=== PATIENT | female | born 1935 | race Caucasian/White ===

== ENCOUNTER 2020-01-31 10:58 | Inpatient (IN) | payer MEDICARE ==
[~2020-01-31] VITALS: Ht 154.9 cm; Wt 73.1 kg
[2020-01-31 11:54] LABS: Hematocrit 43.3 % (36.0-46.0); Hemoglobin 14.2 g/dL (12.2-16.2); Mean Corpuscular Hgb Conc. 32.7 g/dL (32.0-36.0); Mean Corpuscular Volume 101.1 fL (80.0-100.0); Platelet Count (auto) 267 10^3/uL (140-450); Red Blood Cells 4.29 10^6/uL (4.0-5.20); Red Cell Distribution Width 15.5 % (11.8-14.3); White Blood Cell 15.3 10^3/uL (4.4-10.8)
[2020-01-31 11:55] LABS: INR 1.63 (0.9-1.15); Partial Thromboplastin Time 26.8 sec (23.64-32.05)
[2020-01-31 11:57] LABS: Basophils % (manual) 0 (0.0-2.0); Blast Cells 0; Eosinophils % (manual) 0 (0-7); Myelocytes % 0; Promyelocytes % 0; Reactive Lymphocytes 0
[2020-01-31 11:58] LABS: Potassium 3.5 mmol/L (3.5-5.1)
[2020-01-31 12:03] LABS: BUN/Creatinine Ratio 28.7; Bilirubin, Total 0.7 mg/dL (0.2-1.0)
[2020-01-31] MEDS ORDERED: ASPirin 81 mg TAB PO ONE (12:30)
[2020-01-31] MEDS ORDERED: ENOXAPARIN SOD 100 MG/1 ML SYRINGE SC ONE (12:30)
[2020-01-31 13:11] LABS: Band Neutrophils % (manual) 5; Lymphocytes % (manual) 19 (10.0-50.0); Metamyelocytes % 2; Monocytes % (manual) 6 (0-12)
[2020-01-31] MEDS ORDERED: ONDANSETRON HCL 4 MG/2 ML VIAL IV PRN (13:30)
[2020-01-31] MEDS ORDERED: ACETAMINOPHEN 500 MG TAB PO PRN (13:30)
[2020-01-31] MEDS ORDERED: LACTULOSE 20Gm/30ML SOLN PO PRN (13:30)
[2020-01-31] MEDS ORDERED: MORPHINE SULF INJ 2 MG/ML SYRINGE 1ML IV PRN (13:30)
[2020-01-31] MEDS ORDERED: DEXTROSE (50%) 50ML SYRG IV PRN (13:30)
[2020-01-31] MEDS ORDERED: NITROGLYCERIN 0.4 MG SL TAB SL PRN (13:30)
[2020-01-31] MEDS: SODIUM CHLORIDE 0.9% 1,000 ML IV SCH (14:01)
[2020-01-31 16:42] LABS: Alcohol, Urine < 3.0 mg/dL (0-5); Amphetamine Screen, Urine NEGATIVE (NEGATIVE); Barbiturate Scree,Urine NEGATIVE (NEGATIVE); Benzodiazephine Screen, Urine NEGATIVE (NEGATIVE); Cannabinoid Screen, Urine NEGATIVE (NEGATIVE); Cocaine Screen, Urine NEGATIVE (NEGATIVE)
[2020-01-31 16:44] LABS: Opiate Scree,Urine NEGATIVE (NEGATIVE); Phencyclidine Screen, Urine NEGATIVE (NEGATIVE)
[2020-01-31 16:47] LABS: Urine Bacteria FEW /hpf (None Seen); Urine Blood 3+ /uL (Negative); Urine Specific Gravity 1.017 (1.001-1.035); Urine WBC 6 /hpf (0 - 5)
[2020-01-31] MEDS: ACCU-CHEK COMFORT CURVE STRIP VI SCH ×2 (17:43→22:00)
[2020-01-31] MEDS: METOPROLOL TARTRATE 25 MG TAB PO SCH (22:00)
[2020-01-31] MEDS ORDERED: ENOXAPARIN SOD 60 MG/0.6 ML SYRINGE SC ONE (22:00)
[2020-01-31] MEDS: FAMOTIDINE 20 MG TAB PO SCH (22:00)
[2020-01-31] MEDS ORDERED: ATORVASTATIN 20 MG TAB PO SCH (22:00)
--- NOTE | 2020-01-31 23:45 | NUR ---
Pt being admitted to [facility] STATUS MAVIS CARRANZA admitted to ICU via rney on lunchroom monitor. Patient transferred to bed, connected to ICU monitoring and oxygen, and weighed by bed scale. Patient oriented to Bettie fowler RN, unit, room, bed, and unit policies regarding patient care and visiting hours. All questions and concerns addressed, patient verbalized understanding. NOTE: PATIENT IS AWAKE, ALERT AND ORIENTED X4. NO SOB, DISTRESS OR PAIN NOTED. ON ROOM AIR POX 96% CLEAR LUNGS ASSISTED WITH BEDPAN, BROWN FOUL SMELLING URINE NOTED. CLEANSED WITH WIPES. PLACED ON CLEAN SHEETS AND PAD. BLANCHABLE REDNESS TO SACRUM. TURNED TO RIGHT SIDE. WOUNDS NOTED TO BILATERAL KNEES AND RIGHT PLANTAR FOOT (WILL TAKE PICTURES) INSTRUCTED ON POC AND TO CALL FOR ASSIST NEEDED. BED IS IN THE LOWEST POSITION WITH SIDE RAILS UP X2, CALL LIGHT IS WITHIN REACH. BED ALARM ON. SAFETY PRECAUTIONS IN PLACE. WILL CLOSELY MONITOR.
[2020-02-01] VITALS (22 sets, daily range): BP systolic 91–115; BP diastolic 46–72
--- NOTE | 2020-02-01 00:10 | NUR ---
WOUND PICS TAKEN OF BILATERAL KNEES AND RIGHT PLANTAR FOOT. CLEANSED RIGHT FOOT WITH WOUND CLEANSER, APPLIED GAUZE AND WRAPPED WITH KERLIX. WOUND PAPERS FILLED OUT AND PLACED IN WOUND BOX IN [facility]. WOUND CONSULT PLACED, AND CAMERA RETURNED TO THE [facility].
[2020-02-01] MEDS ORDERED: SIMV-13 PO (00:35)
[2020-02-01] MEDS ORDERED: BENA20TA14 PO (00:35)
[2020-02-01] MEDS ORDERED: ASCO500T11 PO (00:35)
[2020-02-01] MEDS ORDERED: POTA10TA51 PO (00:35)
[2020-02-01] MEDS ORDERED: WARF3TAB22 PO (00:35)
[2020-02-01] MEDS ORDERED: WARF4TAB33 PO (00:35)
[2020-02-01] MEDS ORDERED: ENAL2.5T PO (00:35)
[2020-02-01] MEDS ORDERED: CHOL100067 PO (00:35)
[2020-02-01] MEDS ORDERED: CYAN1TAB14 PO (00:35)
[2020-02-01] MEDS: SODIUM CHLORIDE 0.9% 1,000 ML IV SCH (05:25)
[2020-02-01] MEDS: ACCU-CHEK COMFORT CURVE STRIP VI SCH ×3 (05:44→17:00)
--- NOTE | 2020-02-01 05:45 | NUR ---
BEDPAN PATIENT HAD A VOID IN THE BEDPAN, BROWN, STRONG SMELL. CLEANSED WITH SOAP AND WATER. NEW PAD PLACED UNDER PATIENT. TOLERATED IT WELL.
[2020-02-01 06:15] LABS: Cholesterol 144 mg/dL (< 200); HDL Cholesterol 86 mg/dL (40-59); LDL Cholesterol 49 mg/dL (< 100); Triglycerides 74 mg/dL (< 150)
--- NOTE | 2020-02-01 07:25 | NUR ---
END OF SHIFT REPORT GIVEN AND CARE ENDORSED KIANA WREN.
--- NOTE | 2020-02-01 07:45 | NUR ---
OPENING SHIFT NOTE: Received report from NOC RNSaumya. Assumed care of patient. Received patient in bed, connected to bedside monitor with alarms in place, no s/s of distress noted. Patient is A&Ox4, forgetful but easily reoriented. Patient with IVF of NS running at 75ml/hr to Rt FA #20, site is patent and asymptomatic. Bed in lowest position, rails x2 up and call light within reach. Updated on plan of care. Will continue to monitor q1hr/PRN.
--- NOTE | 2020-02-01 08:36 | NUR ---
MRSA swab resent.
--- NOTE | 2020-02-01 09:42 | NUR ---
dye penetrant testing technician at bedside.
--- NOTE | 2020-02-01 09:48 | NUR ---
Dr De Oliveira at bedside to see patient.
[2020-02-01] MEDS: NITROGLYCERIN 0.2MG/HR TOPICAL PATCH TD SCH (10:00)
[2020-02-01] MEDS: METOPROLOL TARTRATE 25 MG TAB PO SCH ×2 (10:00→19:58)
[2020-02-01] MEDS: ASPirin 81 mg TAB PO SCH (10:36)
--- NOTE | 2020-02-01 12:20 | NUR ---
Dr Cassie Boogie to see patient. Orders received. Patient now [facility] status.
[2020-02-01] MEDS ORDERED: VANCOMYCIN PER PHARMACY 0 MG IV SCH (12:30)
--- NOTE | 2020-02-01 12:34 | NUR ---
Dr Vaca to see patient. Orders received.
[2020-02-01] MEDS ORDERED: VANCOMYCIN 1GM/250ML 250 ML IV ONE ×2 (13:00→15:00)
[2020-02-01] MEDS ORDERED: LIDOCAINE VISCOUS 2% 15ML UD MT ONE (13:00)
--- NOTE | 2020-02-01 13:10 | NUR ---
WOUND CARE NOTE: IN TO SEE PATIENT AT THIS TIME PER WOUND CARE CONSULT REQUEST. PATIENT RECENTLY ADMITTED TO [facility] WITH DIAGNOSIS OF NON STEMI. PATIENT HAS CURRENT ARUNA SCORE OF 14. PATIENT IS ABLE TO ASSIST WITH HER TURNING/REPOSITIONING. PATIENT NOTED TO HAVE SKIN INTEGRITY CONCERNS UPON ADMIT. WOUND PHOTOS TAKEN AT THAT TIME BY BEDSIDE NURSE. PATIENT STATES THAT SHE FELL BETWEEN HER BED AND COMMODE. SHE FELL TO HER KNEES AND WAS UNABLE TO GET UP. PATIENT STAYED ON HER KNEES FOR MULTIPLE HOURS, AWAITING ASSISTANCE. 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 SHE SEEKS REGULAR PODIATRIC CARE/DEBRIDEMENTS WITH HER GRINDER SET UP OPERATOR GEAR TOOL, AND HAS HOME HEALTHCARE NURSE CHANGE HER DRESSINGS. PATIENT NOTED TO HAVE 2 X 0.5 X 0.4 CM CHRONIC NON HEALING WOUND TO THE RIGHT PLANTAR FOREFOOT. WOUND BED IS PALE RED, PERIWOUND IS PINK. NO NECROTIC TISSUE NOTED. WOUND HAS SCANT SEROUS DRAINAGE NOTED. CLEANSED WITH WOUND CLEANSER, PATTED DRY WITH STERILE GAUZE. APPLIED THERAHONEY, TELFA. WRAPPED FOOT WITH KERLIX, SECURED WITH TAPE. BILATERAL KNEES ARE ERYTHEMIC, WITH SCABBED ABRASIONS NOTED. THERE IS EDEMA NOTED TO BOTH KNEES. SKIN IS BLANCHING TO BOTH KNEES. LEFT OPEN TO AIR. RECOMMEND: FREQUENT TURN SCHEDULE Q 2 HOURS PRN CONDITION PERMITS, WITH PRESSURE REDISTRIBUTION USING PILLOWS/WEDGES, BID/PRN APPLICATION WITH MOISTURE BARRIER CREAM, OPTIFOAM GENTLE SACRAL DRESSING, EOD/PRN DRESSING CHANGE TO RIGHT FOOT WOUND, SKIN/WOUND CARE PLAN (IMPLEMENTED), DIETARY CONSULT, CONTINUED MONITORING BY WOUND CARE TEAM. Addendum: 02/01/20 at 1625 by Myranda Wagoner RN Amended: Links added.
[2020-02-01] MEDS ORDERED: LIDOCAINE HCL 2% TOP JELLY 5ML TOP ONE (13:15)
[2020-02-01] MEDS ORDERED: PIPERACILLIN-TAZOB 3.375GM 100 ML IV ONE (13:30)
[2020-02-01] MEDS: SOD CHL 0.9%/ KCL 20MEQ 1,000 ML IV SCH ×2 (13:49→19:58)
--- NOTE | 2020-02-01 14:09 | NUR ---
Serrano catheter insertion Patient assessed and determined to be in need of serrano catheter. Order obtained from Dr Vaca. Patient educated on catheter and reason for insertion. All questions answered. Serrano catheter 16fr guage Icelandic inserted with clean sterile technique. Patient tolerated well. Urnine sample sent to lab.
[2020-02-01 14:47] LABS: Protein, Urine 273.8 mg/dL (0.0-11.9)
--- NOTE | 2020-02-01 16:54 | NUR ---
airframe and powerplant technician at bedside.
--- NOTE | 2020-02-01 18:53 | NUR ---
CLOSING SHIFT NOTE: Patient sitting up in bed after dinner. Patient connected to bedside monitor with alarms in place. Patient now with IVF of NS + 20 KCL infusing at 120ml/hr in right FA #20. Renee placed early and draining to gravity dark yellow UOP. Bed in lowest position, rails up x2 and call light within reach. Report to be given to Saumya SANTOS RN.
[2020-02-01] MEDS: PIPERACILLIN-TAZOB 3.375GM 100 ML IV SCH (19:57)
[2020-02-01] MEDS: FAMOTIDINE 20 MG TAB PO SCH (19:58)
--- NOTE | 2020-02-01 20:00 | NUR ---
SHIFT OPENING NOTE RECEIVED PATIENT AWAKE, ALERT AND ORIENTED X4. NO SOB, DISTRESS OR PAIN NOTED. ON ROOM AIR. WHELAN NOTED WITH YELLOWISH/BROWN URINE WITH SEDIMENT. FLUIDS INFUSING AT 120ML/H. PHYSICAL ASSESSMENT COMPLETED, SEE INTERVENTIONS. INSTRUCTED ON POC AND TO CALL FOR ASSIST NEEDED. BED IS IN THE LOWEST POSITION WITH SIDE RAILS UP X2, CALL LIGHT IS WITHIN REACH.
[2020-02-02] VITALS: BP 95/52
[2020-02-02] MEDS: ACCU-CHEK COMFORT CURVE STRIP VI SCH ×2 (00:10→04:31)
[2020-02-02] MEDS: SOD CHL 0.9%/ KCL 20MEQ 1,000 ML IV SCH ×3 (02:27→21:33)
[2020-02-02] MEDS: PIPERACILLIN-TAZOB 3.375GM 100 ML IV SCH ×4 (02:27→21:32)
--- NOTE | 2020-02-02 03:40 | NUR ---
MORNING HYGIENE CARE FULL BED BATH PERFORMED USING WARM SOAPY WASH CLOTHES. GOWN CHANGED. HAIR CARE DONE, ORAL CARE DONE. PARTIAL LINEN CHANGED. PATIENT REPOSITIONED FOR COMFORT. TOLERATED IT WELL.
[2020-02-02 04:00] VITALS: BP 98/53
[2020-02-02 04:07] LABS: Hematocrit 36.4 % (36.0-46.0); Hemoglobin 11.8 g/dL (12.2-16.2); Mean Corpuscular Hemoglobin 32.7 pg (28.0-32.0); Mean Corpuscular Hgb Conc. 32.5 g/dL (32.0-36.0); Mean Corpuscular Volume 100.7 fL (80.0-100.0); Platelet Count (auto) 152 10^3/uL (140-450); Red Blood Cells 3.62 10^6/uL (4.0-5.20); White Blood Cell 11.4 10^3/uL (4.4-10.8)
[2020-02-02 04:14] LABS: Albumin 2.2 g/dL (3.4-5.0); Calcium 7.1 mg/dL (8.5-10.1); Potassium 3.5 mmol/L (3.5-5.1)
[2020-02-02 04:18] LABS: Bilirubin, Total 0.9 mg/dL (0.2-1.0); Phosphorus 1.8 mg/dL (2.5-4.90); Total Protein 5.6 g/dL (6.4-8.2)
[2020-02-02 04:49] LABS: Basophils % (manual) 0 (0.0-2.0); Blast Cells 0; Eosinophils % (manual) 0 (0-7); Metamyelocytes % 0; Myelocytes % 0; Promyelocytes % 0; Reactive Lymphocytes 0
[2020-02-02 04:58] LABS: BUN/Creatinine Ratio 30.4
[2020-02-02 05:02] LABS: Band Neutrophils % (manual) 12; Lymphocytes % (manual) 21 (10.0-50.0); Monocytes % (manual) 2 (0-12)
--- NOTE | 2020-02-02 07:15 | NUR ---
END OF SHIFT REPORT GIVEN AND CARE ENDORSED TO KIANA WREN.
--- NOTE | 2020-02-02 07:45 | NUR ---
OPENING SHIFT NOTE: Received report from NOC RNSaumya. Assumed care of patient. Received patient in bed, connected to bedside monitor with alarms in place, no s/s of distress noted. Patient is A&Ox4, forgetful but easily reoriented. Patient with IVF of NS+20 KCl running at 120ml/hr to Rt FA #20, site is patent and asymptomatic. Renee draining to gravity dark yellow UOP with sediment noted. Bed in lowest position, rails x2 up and call light within reach. Updated on plan of care. Will continue to monitor q1hr/PRN.
[2020-02-02 08:00] VITALS: BP 98/72
[2020-02-02] MEDS: traMADol HCL 50 MG TAB PO PRN ×2 (08:22→21:32)
--- NOTE | 2020-02-02 08:30 | NUR ---
MD: Dr Cassie Boogie to see patient. Orders received.
[2020-02-02] MEDS ORDERED: POTASSIUM PHOSPHATE 44 MEQ in D5W 5% 250 ML IV ONE (09:30)
[2020-02-02] MEDS: NITROGLYCERIN 0.2MG/HR TOPICAL PATCH TD SCH (09:43)
[2020-02-02] MEDS: METOPROLOL TARTRATE 25 MG TAB PO SCH ×2 (09:44→21:33)
[2020-02-02] MEDS: ASPirin 81 mg TAB PO SCH (10:31)
[2020-02-02 12:00] VITALS: BP 102/59
--- NOTE | 2020-02-02 12:30 | NUR ---
MD: Dr Vaca to see patient. No new orders received.
[2020-02-02] MEDS: VANCOMYCIN 750mg/250ml 250 ML IV SCH (12:55)
--- NOTE | 2020-02-02 14:38 | NUR ---
Nutrition Consult/assessment Notes Please see attached link fo complete assessment Est. Needs BW 67 [id number] kcals (23-25 kcal/kgBW). 67-87 gms/day (1.0-1.3 gm/kgBW low alb). Will continue to monitor pertinent labs and reassess nutrient need prn. Addendum: 02/02/20 at [address] Amended: Links added.
--- NOTE | 2020-02-02 16:22 | NUR ---
Patient resting in bed, sleeping on and off. No s/s of distress noted. Will continue to monitor.
--- NOTE | 2020-02-02 18:52 | NUR ---
CLOSING SHIFT NOTE: Patient sitting up in bed after dinner. Patient connected to bedside monitor with alarms in place. Patient is a telemetry downgrade, pending bed assignment. Patient now with IVF of NS + 20 KCL infusing at 100ml/hr in right FA #20. Renee draining to gravity yellow UOP. Bed in lowest position, rails up x2 and call light within reach. Report to be given to TOM WREN.
[2020-02-02 20:00] VITALS: BP 109/69
--- NOTE | 2020-02-02 20:00 | NUR ---
Pt stable this shift. No S/S of distress. Repositioned.
[2020-02-02] MEDS: FAMOTIDINE 20 MG TAB PO SCH (21:32)
[2020-02-03] VITALS: BP 105/61
--- NOTE | 2020-02-03 | NUR ---
Ultram given per request. Generalized pain. Will continue to monitor.
[2020-02-03] MEDS: TEMAZEPAM 15 MG CAP PO PRN ×2 (00:46→23:16)
--- NOTE | 2020-02-03 01:00 | NUR ---
Restoril given per request. Stable, will continue to monitor.
--- NOTE | 2020-02-03 03:00 | NUR ---
Bed assignment given. 247A. Stable at this time.
[2020-02-03] MEDS: PIPERACILLIN-TAZOB 3.375GM 100 ML IV SCH ×4 (03:36→20:00)
[2020-02-03 03:49] LABS: Basophils # (auto) 0 10 ^3/uL (0-0.2); Eosinophils # (auto) 0 10 ^3/uL (0-0.8); Hemoglobin 10.5 g/dL (12.2-16.2)
[2020-02-03 03:51] LABS: Basophils % (auto) 0.3 % (0.0-2.0); Eosinophils % (auto) 0.1 % (0.0-7.0); Hematocrit 31.3 % (36.0-46.0); Lymphocytes # (auto) 1.8 10 ^3/uL (0.4-5.4); Lymphocytes % (auto) 17.7 % (10.0-50.0); Mean Corpuscular Hemoglobin 34.2 pg (28.0-32.0); Mean Corpuscular Hgb Conc. 33.6 g/dL (32.0-36.0); Mean Corpuscular Volume 101.8 fL (80.0-100.0); Monocytes # (auto) 0.9 10 ^3/uL (0-1.3); Monocytes % (auto) 9.1 % (0.0-12.0); Neutrophils # (auto) 7.5 10 ^3/uL (1.6-8.6); Neutrophils % (auto) 72.8 % (37.0-80.0); Platelet Count (auto) 133 10^3/uL (140-450); Red Blood Cells 3.08 10^6/uL (4.0-5.20); Red Cell Distribution Width 16.1 % (11.8-14.3); White Blood Cell 10.3 10^3/uL (4.4-10.8)
[2020-02-03 04:00] VITALS: BP 100/55
[2020-02-03 04:07] LABS: Potassium 3.6 mmol/L (3.5-5.1)
[2020-02-03 04:11] LABS: BUN/Creatinine Ratio 28.1; Bilirubin, Total 1.1 mg/dL (0.2-1.0); Total Protein 5.6 g/dL (6.4-8.2)
--- NOTE | 2020-02-03 04:15 | NUR ---
Received Report Received report from [facility] nurse Rina, waiting for patient to be transfer to telemetry floor.
--- NOTE | 2020-02-03 04:56 | NUR ---
Report given to Jacki WREN. Pt stable and now alert and oriented. Pt transferred to room 247A via bed by Ester MTZ. All belongings with pt. Care endorsed.
--- NOTE | 2020-02-03 04:58 | NUR ---
Admit to [facility] Emre CARRANZAitted to [facility] via gurney on cardiac technician, and portable 02. Patient transfered to bed, connected to unit monitoring and oxygen, and weighed by bedscale. Patient oriented to BRYCE LOPEZ, RN primary RN, unit, room, bed, and unit policies regarding patient care and visiting hours. All questions and concerns addressed, patient verbalized understanding. Tele monitor 2 SR.
[2020-02-03] MEDS: SOD CHL 0.9%/ KCL 20MEQ 1,000 ML IV SCH ×2 (05:30→15:52)
[2020-02-03] MEDS: traMADol HCL 50 MG TAB PO PRN (06:29)
--- NOTE | 2020-02-03 06:29 | NUR ---
Pain Patient c/o pain in her feet. Pain medication given.
--- NOTE | 2020-02-03 07:30 | NUR ---
Opening Shift Note Assumed care of patient, awake, alert, and oriented. No S/S of distress/SOB or pain. Bed in lowest/locked position, bed rails up x2, call light within reach. Instructed on POC and to call for assist PRN. Will continue to monitor for changes Q1hr and PRN.
[2020-02-03 08:00] VITALS: BP_SYST 121; BP_SYST 94; BP_DIAS 58; BP_DIAS 68
[2020-02-03] MEDS: ASPirin 81 mg TAB PO SCH (08:16)
[2020-02-03] MEDS: NITROGLYCERIN 0.2MG/HR TOPICAL PATCH TD SCH (08:17)
[2020-02-03] MEDS: METOPROLOL TARTRATE 25 MG TAB PO SCH ×2 (08:17→21:52)
--- NOTE | 2020-02-03 10:10 | NUR ---
MD ROUNDS DR Cassie SINGER AT BEDSIDE DISCUSSING POC WITH PATIENT. NEW ORDERS RECEIVED/WILL CARRY OUT. WILL CONTINUE TO MONITOR
[2020-02-03] MEDS ORDERED: NITROFURANTOIN (MONO) 100 mg CAP PO ONE (10:15)
[2020-02-03 12:00] VITALS: BP 120/66
[2020-02-03] MEDS: Ensure HIGH Protein Vanilla 8oz Bottle PO SCH ×2 (14:00→18:30)
[2020-02-03] MEDS: VANCOMYCIN 750mg/250ml 250 ML IV SCH (14:51)
--- NOTE | 2020-02-03 15:36 | NUR ---
assessment re: rosa consults Patient is a 85 year old female who was sleeping. Per patients caregiver Melba prior to admission patient lived home alone and functioned with assistance. Per Melba patient can bathe, dress, and feed and cook for herself. Melba drives to appointments, does grocery shopping for patient. Patients PCP is Dr Mejia. Per Melba patient did fall at home due to weakness. Patient is on service with [facility]. Patient will need a resumption order on discharge for wound care and PT. Per Melba patient will go home with her on discharge until patient is able to return home. Melba verbalized understanding and agreed to discharge plan home with her. Addendum: 02/03/20 at 1612 by Gabriella ALVAREZ Amended: Links added.
[2020-02-03 17:00] VITALS: BP 101/59
--- NOTE | 2020-02-03 19:15 | NUR ---
Opening Shift Note Assumed care of patient, awake and alert. No S/S of distress/SOB or pain. Patient eating dinner. Renee hanging below bed, draining to gravity. Instructed on POC and to call for assist PRN, will continue to monitor for changes Q1hr and PRN.
[2020-02-03] MEDS: FAMOTIDINE 20 MG TAB PO SCH (21:52)
--- NOTE | 2020-02-03 21:52 | NUR ---
Pain Patient c/o pain 2/10 to LBE. Pain medication administered.
[2020-02-03 22:00] VITALS: BP 106/62
--- NOTE | 2020-02-03 22:52 | NUR ---
RE Pain Reassessed pain 0/10, patient stated "I feel better now"
[2020-02-04] MEDS: SOD CHL 0.9%/ KCL 20MEQ 1,000 ML IV SCH ×2 (02:29→11:13)
[2020-02-04] MEDS: PIPERACILLIN-TAZOB 3.375GM 100 ML IV SCH ×2 (02:29→08:00)
[2020-02-04 05:00] VITALS: BP 101/58
[2020-02-04 06:46] LABS: Basophils # (auto) 0 10 ^3/uL (0-0.2); Mean Corpuscular Volume 101.3 fL (80.0-100.0); White Blood Cell 6.8 10^3/uL (4.4-10.8)
[2020-02-04 06:48] LABS: Basophils % (auto) 0.4 % (0.0-2.0); Eosinophils # (auto) 0 10 ^3/uL (0-0.8); Eosinophils % (auto) 0.7 % (0.0-7.0); Hematocrit 29.1 % (36.0-46.0); Hemoglobin 9.8 g/dL (12.2-16.2); Lymphocytes # (auto) 1.7 10 ^3/uL (0.4-5.4); Lymphocytes % (auto) 25.3 % (10.0-50.0); Mean Corpuscular Hemoglobin 34.3 pg (28.0-32.0); Mean Corpuscular Hgb Conc. 33.8 g/dL (32.0-36.0); Monocytes # (auto) 0.8 10 ^3/uL (0-1.3); Monocytes % (auto) 11.1 % (0.0-12.0); Neutrophils # (auto) 4.2 10 ^3/uL (1.6-8.6); Neutrophils % (auto) 62.5 % (37.0-80.0); Nucleated Red Blood Cells % 0.1 %; Platelet Count (auto) 141 10^3/uL (140-450); Red Blood Cells 2.88 10^6/uL (4.0-5.20); Red Cell Distribution Width 15.5 % (11.8-14.3)
[2020-02-04 06:57] LABS: Potassium 3.5 mmol/L (3.5-5.1)
[2020-02-04 07:07] LABS: Albumin 1.7 g/dL (3.4-5.0); BUN/Creatinine Ratio 25.3; Bilirubin, Total 0.9 mg/dL (0.2-1.0); Calcium 7.6 mg/dL (8.5-10.1); Total Protein 5.4 g/dL (6.4-8.2)
--- NOTE | 2020-02-04 07:08 | NUR ---
Closing Note Endorsed care to dayshift nurse.
--- NOTE | 2020-02-04 07:30 | NUR ---
Opening Shift Note Assumed care of patient, awake, alert, and oriented. No S/S of distress/SOB or pain. Bed in lowest/locked position, bed rails up x2, call light within reach. Instructed on POC and to call for assist PRN. Will continue to monitor for changes Q1hr and PRN. Addendum: 02/04/20 at 0931 by CRHIS JACOBSON RN RN PATIENT SUPINE HOB >30 DEGREES
[2020-02-04 08:00] VITALS: BP 104/57
--- NOTE | 2020-02-04 09:00 | NUR ---
POSITION PATIENT TURNED TO RIGHT SIDE. PATIENT TOLERATED WELL. WILL CONTINUE TO MONITOR
[2020-02-04] MEDS: METOPROLOL TARTRATE 25 MG TAB PO SCH (09:19)
[2020-02-04] MEDS: NITROGLYCERIN 0.2MG/HR TOPICAL PATCH TD SCH (09:19)
[2020-02-04] MEDS: Ensure HIGH Protein Vanilla 8oz Bottle PO SCH ×2 (09:19→12:15)
[2020-02-04] MEDS: ASPirin 81 mg TAB PO SCH (09:20)
--- NOTE | 2020-02-04 10:45 | NUR ---
MD ROUNDS DR Cassie SINGER AT BEDSIDE DISCUSSING POC WITH PATIENT. NEW ORDERS RECEIVED/WILL CARRY OUT. WILL CONTINUE TO MONITOR
[2020-02-04 12:00] VITALS: BP 129/75
--- NOTE | 2020-02-04 12:15 | NUR ---
TASHA UPDATED MICHELET, PATIENT CAREGIVER, [phone], ON PATIENT DISCHARGE. PER MICHELET: PATIENT NOTIFIED HER. MICHELET WILL BE PICKING PATIENT UP UPON DISCHARGE. WILL CONTINUE TO MONITOR
--- NOTE | 2020-02-04 13:38 | NUR ---
D/C Planning Per SS consult to resume home health with [facility]. Faxed clinical to agency. Per Alia with [facility]:) they will resume service for patient within 24hrs upon d/c.
--- NOTE | 2020-02-04 14:36 | NUR ---
MRSA MRSA SWAB SENT. DISCHARGE WOUND PHOTOS TAKEN. PATIENT BATHED, DRESSED AND AWAITING NOK TO PICK HER UP
--- NOTE | 2020-02-04 14:36 | NUR ---
WHELAN REMOVED PATIENT WHELAN CATHETER. PATIENT TOLERATED WELL. INFORMED PATIENT TO INFORM RN OF WHEN SHE URINATES. PER PATIENT SHE USES PADS AND IS INCONTINENT. WILL CONTINUE TO MONITOR
--- NOTE | 2020-02-04 17:48 | NUR ---
Discharge instructions given as ordered. Encourage to follow up with PMD as instructed. All questions and concerns addressed. Patient verbalized understanding. IV removed with catheter intact, pressure dressing applied, serrano catheter removed. Telemetry unit returned to ICU. Patient taken to vehicle via wheelchair with all personal belongings, accompanied by staff. No distress noted at time of departure.
== END 2020-02-04 17:45 | disposition home health service (06) | DRG 871 ==
LOC: ER 10:58 → EDBD 10:58 → OVERFLOW 10:59 → TELE-EAST 23:15 → DOU IN ICU 23:42 → TELE-EAST 02-03 05:27
PROVIDERS: ADMIT Internal Medicine; ATTEND Family Medicine
DX: A41.9 Sepsis, unspecified organism (principal); G93.41 Metabolic encephalopathy; I21.4 Non-ST elevation (NSTEMI) myocardial infarction; N17.0 Acute kidney failure with tubular necrosis; I50.41 Acute combined systolic (congestive) and diastolic (congestive) heart failure; M62.82 Rhabdomyolysis; D68.69 Other thrombophilia; I11.0 Hypertensive heart disease with heart failure; S80.02XA Contusion of left knee, initial encounter; W18.30XA Fall on same level, unspecified, initial encounter; I25.10 Atherosclerotic heart disease of native coronary artery without angina pectoris; I95.9 Hypotension, unspecified; E78.00 Pure hypercholesterolemia, unspecified; R65.20 Severe sepsis without septic shock; S80.211A Abrasion, right knee, initial encounter; S80.212A Abrasion, left knee, initial encounter; F41.9 Anxiety disorder, unspecified; Z98.51 Tubal ligation status; Z88.1 Allergy status to other antibiotic agents; Z88.8 Allergy status to other drugs, medicaments and biological substances; Z79.899 Other long term (current) drug therapy; Z86.711 Personal history of pulmonary embolism; Y93.89 Activity, other specified; Y92.89 Other specified places as the place of occurrence of the external cause; Y99.8 Other external cause status
CPT/HCPCS: 36415; 71045; 73562; 76705; 80053; 80061; 80202; 80307; 81001; 82550; 82570; 82962; 83036; 83735; 83880; 84100; 84156; 84300; 84484; 85007; 85025; 85027; 85610; 85652; 85730; 86704; 86706; 86708; 86803; 87040; 87081; 87086; 87340; 93005; 93306; 93971; 97110; 97163; 97530; G0378; J2543; J7060

== ENCOUNTER 2020-02-15 10:36 | Inpatient (IN) | payer MEDICARE ==
[~2020-02-15] VITALS: Ht 154.9 cm; Wt 66.5 kg
[~2020-02-15 10:36] MED LIST: ASCO500T11 PO; BENA20TA14 PO; CHOL100067 PO; CYAN1TAB14 PO; ENAL2.5T PO; POTA10TA51 PO; SIMV-13 PO; WARF3TAB22 PO; WARF4TAB33 PO
[2020-02-15] MEDS ORDERED: SODIUM CHLORIDE 0.9% 1,000 ML IV ONE (11:00)
[2020-02-15 11:36] LABS: Eosinophils # (auto) 0 10 ^3/uL (0-0.8); Hemoglobin 11.3 g/dL (12.2-16.2); Lymphocytes # (auto) 3.3 10 ^3/uL (0.4-5.4); Mean Corpuscular Hgb Conc. 33.1 g/dL (32.0-36.0); Monocytes # (auto) 0.6 10 ^3/uL (0-1.3); Red Blood Cells 3.37 10^6/uL (4.0-5.20)
[2020-02-15 11:37] LABS: Basophils # (auto) 0 10 ^3/uL (0-0.2); Basophils % (auto) 0.3 % (0.0-2.0); Eosinophils % (auto) 0.3 % (0.0-7.0); Hematocrit 34.1 % (36.0-46.0); Lymphocytes % (auto) 27.3 % (10.0-50.0); Mean Corpuscular Hemoglobin 33.5 pg (28.0-32.0); Mean Corpuscular Volume 101.2 fL (80.0-100.0); Monocytes % (auto) 5.4 % (0.0-12.0); Neutrophils % (auto) 66.7 % (37.0-80.0); Platelet Count (auto) 374 10^3/uL (140-450); White Blood Cell 11.9 10^3/uL (4.4-10.8)
[2020-02-15 11:43] LABS: Anion Gap 9 (5-15); Blood Urea Nitrogen 19 mg/dL (7-18); Calcium 8.3 mg/dL (8.5-10.1); Carbon Dioxide 28 mmol/L (21-32); Chloride 105 mmol/L (98-107); Glucose 104 mg/dL (74-106); Magnesium 1.8 mg/dL (1.6-2.6); Potassium 3.6 mmol/L (3.5-5.1); Sodium 142 mmol/L (136-145)
[2020-02-15 11:45] LABS: INR 1.11 (0.9-1.15); Partial Thromboplastin Time 23.6 sec (23.64-32.05)
[2020-02-15 11:48] LABS: Alanine Aminotransferase 63 U/L (13-56); Alkaline Phosphatase 102 U/L (45-117); Aspartate Aminotransferase 27 U/L (15-37); BUN/Creatinine Ratio 24.4; Bilirubin, Total 0.7 mg/dL (0.2-1.0); GFR African American 90 mL/min; GFR Non-African American 74 mL/min; Total Protein 6.5 g/dL (6.4-8.2)
[2020-02-15 11:58] LABS: Urine Bacteria MANY /hpf (None Seen); Urine Blood 1+ /uL (Negative); Urine Specific Gravity 1.014 (1.001-1.035); Urine WBC 222 /hpf (0 - 5)
[2020-02-15] MEDS ORDERED: cefTRIAXone 1GM/50ML D5W 50 ML IV ONE (12:45)
[2020-02-15] MEDS ORDERED: ACETAMINOPHEN 325 MG TAB PO ONE (15:15)
[2020-02-15] MEDS ORDERED: CYANOCOBALAMIN (B-12) 1000 MCG/1 ML VIAL SUBCUT ONE (15:30)
[2020-02-15] MEDS ORDERED: levoFLOXacin 500MG 100 ML IV ONE (16:45)
[2020-02-15] MEDS ORDERED: ACETAMINOPHEN 500 MG TAB PO PRN (16:45)
[2020-02-15] MEDS ORDERED: ONDANSETRON HCL 4 MG/2 ML VIAL IV PRN (16:45)
--- NOTE | 2020-02-15 17:31 | NUR ---
MS admit from ER MAVIS CARRANZA admitted to [facility]. No report received. Patient oriented to REMY MATOS RN primary RN, unit, room, bed, and unit policies regarding patient care and visiting hours. Patient weighed by bedscale and encouraged to call if they need something. All questions and concerns addressed, patient verbalized understanding.
[2020-02-15] MEDS: SODIUM CHLORIDE 0.9% 1,000 ML IV SCH (17:37)
[2020-02-15 18:29] VITALS: BP 135/58
--- NOTE | 2020-02-15 19:41 | NUR ---
Closing Shift Note Patient resting in bed. No distress noted. Report given. Will endorse care to the power and recovery shift engineer RN.
[2020-02-15 22:00] VITALS: BP 119/67
[2020-02-15] MEDS: FAMOTIDINE 20 MG TAB PO SCH (22:27)
[2020-02-15] MEDS: traMADol HCL 50 MG TAB PO PRN (23:46)
[2020-02-16] MEDS: SODIUM CHLORIDE 0.9% 1,000 ML IV SCH ×3 (00:46→22:06)
[2020-02-16 05:00] VITALS: BP 118/60
[2020-02-16 05:37] LABS: Basophils # (auto) 0 10 ^3/uL (0-0.2); Eosinophils # (auto) 0 10 ^3/uL (0-0.8); Eosinophils % (auto) 0.4 % (0.0-7.0); Hemoglobin 9.7 g/dL (12.2-16.2); Mean Corpuscular Hemoglobin 34.4 pg (28.0-32.0)
[2020-02-16 05:41] LABS: Basophils % (auto) 0.3 % (0.0-2.0); Hematocrit 29.1 % (36.0-46.0); Lymphocytes # (auto) 2.3 10 ^3/uL (0.4-5.4); Lymphocytes % (auto) 22.6 % (10.0-50.0); Mean Corpuscular Hgb Conc. 33.5 g/dL (32.0-36.0); Mean Corpuscular Volume 102.5 fL (80.0-100.0); Monocytes # (auto) 0.8 10 ^3/uL (0-1.3); Monocytes % (auto) 7.5 % (0.0-12.0); Neutrophils % (auto) 69.2 % (37.0-80.0); Platelet Count (auto) 278 10^3/uL (140-450); Red Blood Cells 2.84 10^6/uL (4.0-5.20)
--- NOTE | 2020-02-16 07:30 | NUR ---
Opening Shift Note Assuming care of patient at this time. Patient is awake and alert. Patient denies pain. Patient shows no signs or symptoms of distress or shortness of breath. Bed is locked and lowered with side rails up x2. Instructed patient on the plan of care for today and to call for assistance as needed. Call light within reach. Will continue to round hourly and as needed.
--- NOTE | 2020-02-16 08:30 | NUR ---
WOUND CARE NOTE: ORDERED P500 AIR MATTRESS AT THIS TIME. PATIENT TO BE PLACED, PENDING DELIVERY BY RAY TOMLINSON
[2020-02-16 09:00] VITALS: BP 122/55
[2020-02-16] MEDS ORDERED: levoFLOXacin 500MG 100 ML IV SCH (10:00)
[2020-02-16 13:00] VITALS: BP 120/61
--- NOTE | 2020-02-16 13:00 | NUR ---
Coumadin Dr. Boogie notified this RN to verify if patient takes Coumadin at home. Patient states she no longer takes Coumadin. Patient states she tried to verify with primary MD, but MD never returned her messages. Will resume all home medications except the Coumadin at this time.
[2020-02-16] MEDS ORDERED: IOHEXOL 300 MG/ML 100ML BOTTLE IJ ONE (13:13)
[2020-02-16 17:00] VITALS: BP 113/64
--- NOTE | 2020-02-16 17:00 | NUR ---
Specialty Bed Patient changed to specialty bed at this time. No distress noted.
--- NOTE | 2020-02-16 19:31 | NUR ---
Closing Shift Note Patient resting in bed. No distress noted. Report given. Will endorse care to the data integration analyst RN.
[2020-02-16] MEDS: FAMOTIDINE 20 MG TAB PO SCH (21:55)
[2020-02-16] MEDS: ATORVASTATIN 20 MG TAB PO SCH (21:55)
[2020-02-16] MEDS: traMADol HCL 50 MG TAB PO PRN (21:56)
[2020-02-16 22:00] VITALS: BP 133/67
[2020-02-17 05:15] VITALS: BP 124/71
--- NOTE | 2020-02-17 07:15 | NUR ---
OPENING SHIFT NOTE Assumed care of patient from evening or night nurse supervisor RN. Patient is alert and oriented x4, no signs of distress noted, patient denies pain. Patient was updated on the plan of care and verbalized understanding. Patient has a serrano, draining clear yellow urine to gravity, no tubing kinks or loops noted. Bed is locked, in the lowest position, side rails up x2 and call light is in reach. Patient was encouraged to call for assistance as needed.
[2020-02-17] MEDS: SODIUM CHLORIDE 0.9% 1,000 ML IV SCH ×2 (08:48→21:42)
[2020-02-17 09:29] VITALS: BP_SYST 117; BP_SYST 182; BP_DIAS 68; BP_DIAS 73
[2020-02-17] MEDS ORDERED: CHOLECALCIFEROL (VITD3) 1,000IU=25mCg TAB PO SCH (10:00)
[2020-02-17] MEDS ORDERED: BENAZEPRIL HCL 10 MG TAB PO SCH (10:00)
[2020-02-17] MEDS: POTASSIUM CHL 20 Meq TABLET PO SCH (10:28)
[2020-02-17] MEDS: levoFLOXacin 250MG 50 ML IV SCH (10:28)
[2020-02-17] MEDS: CHOLECALCIFEROL (VITD3) 1,000IU=25mCg TAB PO SCH (10:29)
[2020-02-17] MEDS: ASCORBIC ACID 500 MG TAB PO SCH (10:29)
[2020-02-17] MEDS: ENALAPRIL MALEATE 10 MG TAB PO SCH (10:29)
--- NOTE | 2020-02-17 12:55 | NUR ---
LUCRECIA AT BEDSIDE updated on the patient status, plan of care was reviewed with patient and she verbalized understanding. Per MD patient may be DC tomorrow. Patient wishes to go to [facility], will follow up with Assistant Professor Of Music.
[2020-02-17 13:00] VITALS: BP_SYST 113; BP_SYST 193; BP_DIAS 71; BP_DIAS 79
--- NOTE | 2020-02-17 13:00 | NUR ---
Pt refused PT tx for today. Addendum: 02/17/20 at 1552 by Garrett Jiménez DATA RECOVERY PLANNER Amended: Links added.
--- NOTE | 2020-02-17 13:45 | NUR ---
Nutrition Assessment Notes Please refer to link for full assessment notes. Est Energy needs: [id number] kcals (20-23 kcal/kgBW) Est Protein needs: 80-100 gms/day (1.2-1.5 gm/kgBW) d/t wounds Will continue to monitor and reassess prn. Addendum: 02/17/20 at [address] Amended: Links added.
--- NOTE | 2020-02-17 14:10 | NUR ---
DRESSING CHANGES Optifoam placed on medial back, sacrum, and right foot. Patient tolerated well.
--- NOTE | 2020-02-17 15:03 | NUR ---
COVID SWAB WALKED TO LAB Checked in at 1500
[2020-02-17] MEDS: traMADol HCL 50 MG TAB PO PRN (15:15)
--- NOTE | 2020-02-17 15:15 | NUR ---
PAIN Patient c/o headache 02/25, medicated as ordered.
--- NOTE | 2020-02-17 16:14 | NUR ---
Assessment Patient is an 85-year-old female who is alert and oriented. Prior to admission patient lived home with her caregiver Ary and functioned with assistance. Per patient Ary helps her with her ADLs. Patient has a walker and cane for home use. Advised patient there is a Social Service consult for SNF placement for physical therapy. Information and choice letter was given to patient. Patient requested [facility]. Informed patient clinical information with be faxed to facility. Informed patient he has a right to participate in all discharge planning. Patient verbalized understanding and agreed to discharge plan. Leanna with [facility] ) advised me they will need a (-) COVID test before admitting patient to facility. Per Leanna patient has been accepted to room 209 bed 1 accepting , Dr. Rico. Informed SIENA Norton regarding COVID test. Addendum: 02/18/20 at 0843 by JODI ALVAREZ Amended: Links added.
[2020-02-17 16:55] VITALS: BP 117/59
--- NOTE | 2020-02-17 19:40 | NUR ---
Opening Shift Note Assumed care of patient, awake and alert x4. No S/S of distress/SOB or pain. Renee is in place and hung below bladder draining yellow urine. Call light is within reach, side rails up x2, bed is in the lowest position. Instructed on POC and to call for assist PRN. All questions and concerns answered, will continue to monitor for changes Q1hr and PRN.
[2020-02-17] MEDS: FAMOTIDINE 20 MG TAB PO SCH (21:54)
[2020-02-17] MEDS: ATORVASTATIN 20 MG TAB PO SCH (21:54)
[2020-02-17 22:00] VITALS: BP 124/65
[2020-02-18] MEDS: traMADol HCL 50 MG TAB PO PRN ×2 (04:35→10:40)
[2020-02-18 05:00] VITALS: BP 140/76
[2020-02-18] MEDS: SODIUM CHLORIDE 0.9% 1,000 ML IV SCH (06:34)
--- NOTE | 2020-02-18 08:00 | NUR ---
RECEIVED PATIENT ALERT AND ORIENTED X4, NOT IN DISTRESS, CLEAR LUNG SOUNDS IN BILATERAL UPPER AND DIMINISHED IN BILATERAL LOWER LUNG LOBES, RR=18 SAT=98%, DEEP BREATHING AND COUGHING ENCOURAGED, VERBALIZED AND DEMONSTRATED WELL, HEART R=79, DENIED SOB AND CHEST PAIN AT THIS MOMENT, ABDOMEN SOFT WITH ACTIVE BS, LAST MB=02/17/20 REPORTED, WHELAN CATH IN PLACE AND PATENT, DRAINING CLEAR YELLOW URINE, BACK AND SACRAL WOUNDS COVERED WITH DRY AND INTACT DRESSING, RT. KNEE WOUND COVERED WITH DRY AND INTACT DRESSING, BILATERAL LEGS DTI NOTED, DRY AND INTACT OPEN TO AIR, RADIAL AND PEDAL PULSES PALPABLE, CAP REFILL <3 SECONDS, RESTING ON BED, DENIED PAIN, HEAD OF BED ELEVATED, BED ON LOW POSITION, RAILS UP X2, CALL LIGHT ON REACH, PENDING SS FOR D/C PROCESS, WILL CONTINUE MONITORING.
--- NOTE | 2020-02-18 08:43 | NUR ---
D/C Planning Faxed COVID test results to [facility].
[2020-02-18 09:00] VITALS: BP 123/61
[2020-02-18] MEDS: levoFLOXacin 250MG 50 ML IV SCH (10:34)
[2020-02-18] MEDS: POTASSIUM CHL 20 Meq TABLET PO SCH (10:34)
[2020-02-18] MEDS: CHOLECALCIFEROL (VITD3) 1,000IU=25mCg TAB PO SCH (10:35)
[2020-02-18] MEDS: ASCORBIC ACID 500 MG TAB PO SCH (10:35)
[2020-02-18] MEDS: ENALAPRIL MALEATE 10 MG TAB PO SCH (10:35)
--- NOTE | 2020-02-18 12:05 | NUR ---
D/C Planning Transportation has been arranged with Lauren ) with a 14:15 hand picker time via [employer]. Informed SIENA Jeffery.
--- NOTE | 2020-02-18 12:50 | NUR ---
COOPERATED PT AND TOLERATED WELL, PENDING D/C TO [facility], D/C EVALUATION WOUND PICTURES WERE TAKEN, WOUND DRESSING WS CHANGED ORDERED, D/C WHELAN CATH, TOLERATED WELL, RESTING ON BED, MAC ARTIST TIME AT 1415 REPORTED, WILL CONTINUE MONITORING.
[2020-02-18 13:00] VITALS: BP 130/75
[2020-02-18 14:12] VITALS: BP 123/61
--- NOTE | 2020-02-18 15:18 | NUR ---
D/C EDUCATION AND INSTRUCTIONS PROVIDED, VERBALIZED UNDERSTANDING, D/C WHELAN CATH AND IV SITE, TOLERATED WELL, VS T=97.8 RR=18 SAT=95% P=98 JK=920/84, NOT IN DISTRESS, DENIED RODRIGUEZ, REPORT WAS GIVEN ON [phone] TO BERNADETTE THE RECEIVING NURSE FOR ROOM 209 BED #1, INFORMATION REPEATED AND VERIFIED, BERNADETTE VERBALIZED UNDERSTANDING, TRANSPORTED ON [facility] TO [facility], TOOK ALL BELONGINGS AND LEFT NOTING BEHIND.
== END 2020-02-18 14:38 | DRG 872 ==
LOC: EDBD 10:36 → ER 10:36 → WEST WING 10:37
PROVIDERS: ADMIT Internal Medicine; ATTEND Family Medicine
DX: A41.9 Sepsis, unspecified organism (principal); N39.0 Urinary tract infection, site not specified; N12 Tubulo-interstitial nephritis, not specified as acute or chronic; E44.0 Moderate protein-calorie malnutrition; G93.40 Encephalopathy, unspecified; I50.9 Heart failure, unspecified; F41.9 Anxiety disorder, unspecified; H54.8 Legal blindness, as defined in USA; I11.0 Hypertensive heart disease with heart failure; Z85.048 Personal history of other malignant neoplasm of rectum, rectosigmoid junction, and anus; Z98.51 Tubal ligation status; Z88.8 Allergy status to other drugs, medicaments and biological substances; Z86.711 Personal history of pulmonary embolism; Z11.59 Encounter for screening for other viral diseases; Z68.27 Body mass index [BMI] 27.0-27.9, adult; R91.8 Other nonspecific abnormal finding of lung field
CPT/HCPCS: 36415; 71045; 71260; 74176; 80053; 81001; 82550; 83735; 84443; 84484; 85025; 85610; 85730; 87040; 87081; 87086; 87088; 87186; 93005; 97110; 97163; 97530; G0378; J0696; J1956

== ENCOUNTER 2021-01-15 10:56 | Inpatient (IN) | payer MEDICARE ==
[~2021-01-15] VITALS: Ht 162.6 cm; Wt 75.0 kg
[~2021-01-15 10:56] MED LIST changes: -ENAL2.5T PO; +ENAL2.5T7 PO; -WARF3TAB22 PO; -WARF4TAB33 PO
[2021-01-15] MEDS ORDERED: SODIUM CHLORIDE 0.9% 1,000 ML IV ONE (11:15)
[2021-01-15 11:55] LABS: Basophils # (auto) 0 10 ^3/uL (0-0.2); Basophils % (auto) 0.2 % (0.0-2.0); Eosinophils # (auto) 0 10 ^3/uL (0-0.8); Eosinophils % (auto) 0.1 % (0.0-7.0); Hematocrit 35.1 % (36.0-46.0); Hemoglobin 11.6 g/dL (12.2-16.2); Lymphocytes # (auto) 3.2 10 ^3/uL (0.4-5.4); Lymphocytes % (auto) 29.3 % (10.0-50.0); Mean Corpuscular Hemoglobin 32.6 pg (28.0-32.0); Mean Corpuscular Volume 98.8 fL (80.0-100.0); Monocytes # (auto) 0.8 10 ^3/uL (0-1.3); Monocytes % (auto) 7.1 % (0.0-12.0); Neutrophils % (auto) 63.3 % (37.0-80.0); Nucleated Red Blood Cells % 0.1 %; Platelet Count (auto) 414 10^3/uL (140-450); Red Blood Cells 3.55 10^6/uL (4.0-5.20); Red Cell Distribution Width 16.9 % (11.8-14.3); White Blood Cell 11.1 10^3/uL (4.4-10.8)
[2021-01-15 12:19] LABS: Chloride 106 mmol/L (98-107); Potassium 3.8 mmol/L (3.5-5.1); Sodium 140 mmol/L (136-145)
[2021-01-15 12:31] LABS: Alanine Aminotransferase 17 U/L (13-56); Albumin 3.1 g/dL (3.4-5.0); Alkaline Phosphatase 90 U/L (45-117); Anion Gap 8 (5-15); Aspartate Aminotransferase 17 U/L (15-37); BUN/Creatinine Ratio 24.1; Bilirubin, Total 0.4 mg/dL (0.2-1.0); Blood Urea Nitrogen 14 mg/dL (7-18); Calcium 9.1 mg/dL (8.5-10.1); Carbon Dioxide 26 mmol/L (21-32); GFR African American 126 mL/min; GFR Non-African American 105 mL/min; Glucose 108 mg/dL (74-106); Total Protein 7.1 g/dL (6.4-8.2)
[2021-01-15 14:47] LABS: Urine Bacteria MOD /hpf (None Seen); Urine Blood 1+ /uL (Negative); Urine WBC 358 /hpf (0 - 5); Urine WBC Clumps PRESENT /hpf (None Seen)
[2021-01-16] MEDS ORDERED: HYDROcodone-ACET 5/325MG TAB PO PRN (10:30)
[2021-01-16] MEDS ORDERED: ONDANSETRON HCL 4 MG/2 ML VIAL IV PRN (10:30)
[2021-01-16] MEDS ORDERED: NITROGLYCERIN 0.4 MG SL TAB SL PRN (10:30)
[2021-01-16] MEDS ORDERED: MORPHINE SULF INJ 2 MG/ML SYRINGE 1ML IV PRN ×2 (10:30)
[2021-01-16] MEDS ORDERED: SOD CHL 0.45% WITH 20MEQ KCL 1,000 ML IV ONE (10:30)
[2021-01-16] MEDS: ACETAMINOPHEN 500 MG TAB PO PRN (10:40)
[2021-01-16] MEDS: metroNIDAZOLE 500MG/100ML 100 ML IV SCH ×2 (10:48→18:40)
[2021-01-16] MEDS: ATORVASTATIN 20 MG TAB PO SCH (11:09)
[2021-01-16 12:30] VITALS: BP 129/79
[2021-01-16 15:16] VITALS: BP 129/79
[2021-01-16 16:49] VITALS: BP 121/82
[2021-01-16 21:25] VITALS: BP 131/70
[2021-01-17] MEDS: metroNIDAZOLE 500MG/100ML 100 ML IV SCH ×3 (02:55→19:07)
[2021-01-17 04:51] VITALS: BP 120/70
[2021-01-17] MEDS: ACETAMINOPHEN 500 MG TAB PO PRN ×2 (04:53→20:39)
[2021-01-17 08:15] VITALS: BP 112/63
[2021-01-17 09:00] VITALS: BP 112/63
[2021-01-17] MEDS: levoFLOXacin 500MG 100 ML IV SCH (09:57)
[2021-01-17] MEDS: ATORVASTATIN 20 MG TAB PO SCH (09:57)
[2021-01-17] MEDS: PANTOPRAZOLE 40 MG TAB PO SCH (09:57)
[2021-01-17] MEDS: LISINOPRIL 20 MG TAB PO SCH (11:17)
[2021-01-17 13:18] VITALS: BP 114/65
[2021-01-17 17:07] VITALS: BP 117/68
[2021-01-17] MEDS: VANCOMYCIN HCL 125MG/5ML ORAL SOL GT SCH ×2 (19:07→22:06)
[2021-01-17 21:12] VITALS: BP 131/72
[2021-01-17] MEDS: FLORASTOR (S. BOULARDII) 250 MG CAP PO SCH (22:06)
[2021-01-17] MEDS: MAGNESIUM OXIDE 400 MG TAB PO SCH (22:06)
[2021-01-18] MEDS: metroNIDAZOLE 500MG/100ML 100 ML IV SCH ×3 (02:27→18:22)
[2021-01-18 05:23] VITALS: BP 106/65
[2021-01-18] MEDS: VANCOMYCIN HCL 125MG/5ML ORAL SOL GT SCH ×4 (05:32→21:18)
[2021-01-18 08:15] LABS: Basophils # (auto) 0 10 ^3/uL (0-0.2); Basophils % (auto) 0.4 % (0.0-2.0); Eosinophils # (auto) 0.1 10 ^3/uL (0-0.8); Eosinophils % (auto) 0.9 % (0.0-7.0); Hematocrit 32.6 % (36.0-46.0); Hemoglobin 10.9 g/dL (12.2-16.2); Lymphocytes # (auto) 3.2 10 ^3/uL (0.4-5.4); Lymphocytes % (auto) 33.1 % (10.0-50.0); Mean Corpuscular Hemoglobin 33.1 pg (28.0-32.0); Mean Corpuscular Hgb Conc. 33.5 g/dL (32.0-36.0); Mean Corpuscular Volume 98.9 fL (80.0-100.0); Monocytes # (auto) 0.9 10 ^3/uL (0-1.3); Monocytes % (auto) 9.5 % (0.0-12.0); Neutrophils # (auto) 5.4 10 ^3/uL (1.6-8.6); Neutrophils % (auto) 56.1 % (37.0-80.0); Nucleated Red Blood Cells % 0.2 %; Platelet Count (auto) 354 10^3/uL (140-450); Red Cell Distribution Width 17.2 % (11.8-14.3); White Blood Cell 9.5 10^3/uL (4.4-10.8)
[2021-01-18 08:54] VITALS: BP 129/72
[2021-01-18 08:56] LABS: Potassium 3.8 mmol/L (3.5-5.1)
[2021-01-18 09:12] LABS: Calcium 8.7 mg/dL (8.5-10.1); Magnesium 2.2 mg/dL (1.6-2.6); Phosphorus 2.9 mg/dL (2.5-4.90)
[2021-01-18] MEDS: levoFLOXacin 500MG 100 ML IV SCH (09:31)
[2021-01-18] MEDS: MAGNESIUM OXIDE 400 MG TAB PO SCH ×2 (09:32→21:18)
[2021-01-18] MEDS: ATORVASTATIN 20 MG TAB PO SCH (09:32)
[2021-01-18] MEDS: PANTOPRAZOLE 40 MG TAB PO SCH (09:32)
[2021-01-18] MEDS: ENOXAPARIN SOD 40 MG/0.4 ML SYRINGE SC SCH (09:32)
[2021-01-18] MEDS: LISINOPRIL 20 MG TAB PO SCH (09:32)
[2021-01-18] MEDS: FLORASTOR (S. BOULARDII) 250 MG CAP PO SCH ×2 (09:32→21:18)
[2021-01-18] MEDS: CHOLESTYRAMINE 4 GM POWDER GT SCH (11:00)
[2021-01-18 13:00] VITALS: BP 133/84
[2021-01-18 16:32] VITALS: BP 134/72
[2021-01-18] MEDS: ACETAMINOPHEN 500 MG TAB PO PRN (20:05)
[2021-01-18 22:00] VITALS: BP 113/64
[2021-01-19] MEDS: metroNIDAZOLE 500MG/100ML 100 ML IV SCH ×2 (02:44→11:23)
[2021-01-19 05:00] VITALS: BP 113/64
[2021-01-19] MEDS: VANCOMYCIN HCL 125MG/5ML ORAL SOL GT SCH ×3 (05:28→18:14)
[2021-01-19] MEDS: ACETAMINOPHEN 500 MG TAB PO PRN ×2 (05:28→19:40)
[2021-01-19 08:54] VITALS: BP 105/64
[2021-01-19] MEDS: LISINOPRIL 20 MG TAB PO SCH (09:25)
[2021-01-19] MEDS: PANTOPRAZOLE 40 MG TAB PO SCH (09:25)
[2021-01-19] MEDS: MAGNESIUM OXIDE 400 MG TAB PO SCH (09:25)
[2021-01-19] MEDS: levoFLOXacin 500MG 100 ML IV SCH (09:25)
[2021-01-19] MEDS: ENOXAPARIN SOD 40 MG/0.4 ML SYRINGE SC SCH (09:25)
[2021-01-19] MEDS: ATORVASTATIN 20 MG TAB PO SCH (09:25)
[2021-01-19] MEDS: FLORASTOR (S. BOULARDII) 250 MG CAP PO SCH (09:25)
[2021-01-19] MEDS: CHOLESTYRAMINE 4 GM POWDER GT SCH (11:23)
[2021-01-19] MEDS ORDERED: NAPROXEN 500 MG TAB PO PRN (12:00)
[2021-01-19] MEDS ORDERED: COLCHICINE 0.6 MG CAP PO ONE (12:00)
[2021-01-19 13:00] VITALS: BP 131/71
[2021-01-19 17:00] VITALS: BP 112/77
[2021-01-20] MEDS ORDERED: COLCHICINE 0.6 MG CAP PO SCH (10:00)
== END 2021-01-19 20:00 | DRG 872 ==
LOC: EDBD 10:56 → ER 10:56 → OVERFLOW 01-16 10:17 → CENTRAL 01-16 12:00
PROVIDERS: ADMIT Nurse Practitioner Acute Care; ATTEND Internal Medicine
DX: A41.9 Sepsis, unspecified organism (principal); A04.72 Enterocolitis due to Clostridium difficile, not specified as recurrent; N30.01 Acute cystitis with hematuria; E44.1 Mild protein-calorie malnutrition; T76.11XA Adult physical abuse, suspected, initial encounter; F41.9 Anxiety disorder, unspecified; E27.8 Other specified disorders of adrenal gland; M79.641 Pain in right hand; M12.831 Other specific arthropathies, not elsewhere classified, right wrist; B96.1 Klebsiella pneumoniae [K. pneumoniae] as the cause of diseases classified elsewhere; Z20.822 Contact with and (suspected) exposure to COVID-19; F43.0 Acute stress reaction; E78.5 Hyperlipidemia, unspecified; I11.0 Hypertensive heart disease with heart failure; I50.9 Heart failure, unspecified; J94.9 Pleural condition, unspecified; Z88.1 Allergy status to other antibiotic agents; Z88.0 Allergy status to penicillin; Z88.8 Allergy status to other drugs, medicaments and biological substances; Z68.24 Body mass index [BMI] 24.0-24.9, adult; Z85.048 Personal history of other malignant neoplasm of rectum, rectosigmoid junction, and anus; Z86.711 Personal history of pulmonary embolism; Z86.718 Personal history of other venous thrombosis and embolism; Z92.3 Personal history of irradiation; Z98.51 Tubal ligation status
CPT/HCPCS: 36415; 51702; 71045; 73120; 74176; 80048; 80053; 81001; 82270; 82378; 83735; 83880; 84100; 84443; 84484; 84550; 85025; 85048; 87045; 87081; 87086; 87088; 87186; 87426; 87427; 87493; 93005; 96360; 96361; 97163; G0378; J1956; J3490

== ENCOUNTER 2023-05-01 20:03 | Emergency (ER) | payer MEDICARE ==
[~2023-05-01] VITALS: Ht 154.9 cm; Wt 63.6 kg
[~2023-05-01 20:03] MED LIST changes: +BENA-36 PO; -BENA20TA14 PO; +ENAL1TAB42 PO; -ENAL2.5T7 PO; -SIMV-13 PO; +SIMV40TA18 PO
[2023-05-01] MEDS ORDERED: IOHEXOL 350 MG/ML 100ML IJ ONE (21:42)
[2023-05-01 22:19] LABS: Basophils # (auto) 0.1 10 ^3/uL (0-0.2); Basophils % (auto) 0.5 % (0.0-2.0); Eosinophils # (auto) 0 10 ^3/uL (0-0.8); Eosinophils % (auto) 0.3 % (0.0-7.0); Hematocrit 36.3 % (36.0-46.0); Hemoglobin 11.9 g/dL (12.2-16.2); Lymphocytes # (auto) 5.2 10 ^3/uL (0.4-5.4); Lymphocytes % (auto) 43.2 % (10.0-50.0); Mean Corpuscular Hemoglobin 32.1 pg (28.0-32.0); Mean Corpuscular Hgb Conc. 32.7 g/dL (32.0-36.0); Mean Corpuscular Volume 98.4 fL (80.0-100.0); Monocytes % (auto) 8.2 % (0.0-12.0); Neutrophils # (auto) 5.8 10 ^3/uL (1.6-8.6); Neutrophils % (auto) 47.8 % (37.0-80.0); Nucleated Red Blood Cells % 0.5 %; Red Blood Cells 3.69 10^6/uL (4.0-5.20); White Blood Cell 12.1 10^3/uL (4.4-10.8)
[2023-05-01 22:33] LABS: INR 1.08 (0.9-1.15); Partial Thromboplastin Time 27.7 SEC (24.5-34.5); Prothrombin Time 11.3 sec (9.3-11.8)
[2023-05-01 22:45] LABS: Albumin 3.4 g/dL (3.4-5.0); Calcium 8.6 mg/dL (8.5-10.1); Magnesium 1.9 mg/dL (1.6-2.6); Potassium 3.6 mmol/L (3.5-5.1)
[2023-05-01 22:50] LABS: BUN/Creatinine Ratio 19.4 (10.0-20.0); Bilirubin, Total 0.4 mg/dL (0.2-1.0)
[2023-05-02 04:30] VITALS: PULSE 101; RESP 14; O2SAT 92
[2023-05-02] MEDS ORDERED: DOCU-94 PO (05:07)
[2023-05-02] MEDS ORDERED: DOXY-286 PO (05:07)
[2023-05-02 08:10] VITALS: BP 142/62; PULSE 89; RESP 20; TEMP 98.1; O2SAT 96
== END 2023-05-02 09:15 | disposition home or self-care (01) ==
LOC: EDBD 20:03 → ER 20:05
DX: K62.89 Other specified diseases of anus and rectum (principal); I11.0 Hypertensive heart disease with heart failure; I50.9 Heart failure, unspecified; J44.9 Chronic obstructive pulmonary disease, unspecified; Z98.51 Tubal ligation status; Z79.01 Long term (current) use of anticoagulants; Z79.899 Other long term (current) drug therapy; Z88.0 Allergy status to penicillin; Z88.6 Allergy status to analgesic agent; Z88.8 Allergy status to other drugs, medicaments and biological substances
CPT/HCPCS: 36415; 74177; 80053; 83605; 83690; 83735; 84484; 85025; 85610; 85730; 87040; 99285; Q9967

== ENCOUNTER 2023-07-10 16:20 | Inpatient (IN) | payer MEDICARE, MEDICAID ==
[~2023-07-10] VITALS: Ht 154.9 cm; Wt 56.0 kg
[~2023-07-10 16:20] MED LIST changes: +DOCU-94 PO; +DOXY-286 PO
[2023-07-10 19:30] VITALS: PULSE 86; RESP 16; O2SAT 96
[2023-07-10] MEDS ORDERED: SODIUM CHLORIDE 0.9% 1,000 ML IV ONE (21:30)
[2023-07-10] MEDS ORDERED: cefTRIAXone 1GM/50ML D5W 50 ML IV ONE (21:45)
[2023-07-10 22:21] LABS: Basophils # (auto) 0 10 ^3/uL (0-0.2); Basophils % (auto) 0.2 % (0.0-2.0); Eosinophils # (auto) 0 10 ^3/uL (0-0.8); Eosinophils % (auto) 0.1 % (0.0-7.0); Hemoglobin 10.3 g/dL (12.2-16.2); Nucleated Red Blood Cells % 0.2 %
[2023-07-10 22:23] LABS: Hematocrit 32.5 % (36.0-46.0); Lymphocytes # (auto) 5.8 10 ^3/uL (0.4-5.4); Lymphocytes % (auto) 30.3 % (10.0-50.0); Mean Corpuscular Hemoglobin 32.1 pg (28.0-32.0); Mean Corpuscular Hgb Conc. 31.7 g/dL (32.0-36.0); Monocytes # (auto) 0.4 10 ^3/uL (0-1.3); Neutrophils % (auto) 67.4 % (37.0-80.0); Red Blood Cells 3.21 10^6/uL (4.0-5.20); Red Cell Distribution Width 17.6 % (11.8-14.3); White Blood Cell 19.3 10^3/uL (4.4-10.8)
[2023-07-10 22:41] LABS: Alanine Aminotransferase < 9 U/L (7-40); Albumin 3.8 g/dL (3.2-4.8); Alkaline Phosphatase 97 U/L (46-116); Anion Gap 9 (5-15); Aspartate Aminotransferase 10 U/L (13-40); BUN/Creatinine Ratio 21.2 (10.0-20.0); Bilirubin, Total 0.4 mg/dL (0.2-1.0); Blood Urea Nitrogen 21 mg/dL (9-23); Carbon Dioxide 27 mmol/L (20-30); Chloride 105 mmol/L (98-107); Glucose 125 mg/dL (74-106); Potassium 4.5 mmol/L (3.5-5.1); Sodium 141 mmol/L (136-145); Total Protein 6.5 g/dL (5.7-8.2)
[2023-07-11] VITALS (10 sets, daily range): BP systolic 90–134; BP diastolic 50–73; PULSE 80–103; RESP 17–23; TEMP 97.7–99.1; O2SAT 94–100
[2023-07-11] MEDS ORDERED: ALBUTEROL SULF 2.5 MG/0.5ML(0.5%) NEB SOLN NEB PRN
[2023-07-11] MEDS ORDERED: ONDANSETRON HCL 4 MG/2 ML VIAL IV PRN
[2023-07-11 03:27] LABS: Urine Bacteria NONE SEEN /hpf (None Seen); Urine Blood Negative /uL (Negative); Urine Clarity HAZY (Clear); Urine Color Yellow (Yellow); Urine Hyaline Cast MOD /lpf (0 - 2); Urine Protein, UAD 2+ (Negative); Urine Specific Gravity 1.016 (1.001-1.035); Urine Urobilinogen Normal (Negative); Urine WBC 390 /hpf (0 - 5); Urine WBC Clumps PRESENT /hpf (None Seen); Urine pH 6.5 (5.0-8.0)
[2023-07-11 06:46] LABS: Calcium 8.5 mg/dL (8.7-10.4); Chloride 107 mmol/L (98-107); Potassium 4.3 mmol/L (3.5-5.1); Sodium 142 mmol/L (136-145)
[2023-07-11 06:47] LABS: Anion Gap 8 (5-15); Carbon Dioxide 27 mmol/L (20-30)
[2023-07-11 06:52] LABS: BUN/Creatinine Ratio 25.3 (10.0-20.0); Blood Urea Nitrogen 21 mg/dL (9-23); Glucose 94 mg/dL (74-106)
[2023-07-11 06:53] LABS: Basophils # (auto) 0.1 10 ^3/uL (0-0.2); Basophils % (auto) 0.5 % (0.0-2.0); Eosinophils # (auto) 0 10 ^3/uL (0-0.8); Eosinophils % (auto) 0.3 % (0.0-7.0); Hemoglobin 9.3 g/dL (12.2-16.2); Mean Corpuscular Hemoglobin 32.7 pg (28.0-32.0); Monocytes # (auto) 1.1 10 ^3/uL (0-1.3)
[2023-07-11 06:55] LABS: Hematocrit 29.2 % (36.0-46.0); Lymphocytes # (auto) 5.5 10 ^3/uL (0.4-5.4); Lymphocytes % (auto) 43.4 % (10.0-50.0); Mean Corpuscular Volume 102.2 fL (80.0-100.0); Monocytes % (auto) 8.6 % (0.0-12.0); Neutrophils # (auto) 5.9 10 ^3/uL (1.6-8.6); Neutrophils % (auto) 47.2 % (37.0-80.0); Red Blood Cells 2.86 10^6/uL (4.0-5.20); Red Cell Distribution Width 17.6 % (11.8-14.3); White Blood Cell 12.6 10^3/uL (4.4-10.8)
[2023-07-11] MEDS ORDERED: HCTZ 25 MG TAB PO SCH (10:00)
[2023-07-11] MEDS ORDERED: LISINOPRIL 20 MG TAB PO SCH (10:00)
[2023-07-11] MEDS: SODIUM CHLORIDE 0.9% 1,000 ML IV SCH (13:15)
[2023-07-11] MEDS: Ensure HIGH Protein Chocolate 8oz Bottle PO SCH (18:30)
[2023-07-11] MEDS: cefTRIAXone 1GM/50ML D5W 50 ML IV SCH (21:47)
[2023-07-11] MEDS: ATORVASTATIN 20 MG TAB PO SCH (21:48)
[2023-07-12] VITALS (7 sets, daily range): BP systolic 97–137; BP diastolic 47–67; PULSE 69–94; RESP 16–22; TEMP 97.6–98.3; O2SAT 96–99
[2023-07-12 06:01] LABS: Eosinophils # (auto) 0.1 10 ^3/uL (0-0.8); Eosinophils % (auto) 0.7 % (0.0-7.0); Hemoglobin 8.8 g/dL (12.2-16.2); Neutrophils # (auto) 6.8 10 ^3/uL (1.6-8.6)
[2023-07-12 06:06] LABS: Chloride 111 mmol/L (98-107); Potassium 3.8 mmol/L (3.5-5.1); Sodium 143 mmol/L (136-145)
[2023-07-12 06:07] LABS: Anion Gap 6 (5-15); Carbon Dioxide 26 mmol/L (20-30)
[2023-07-12 06:08] LABS: Calcium 8.2 mg/dL (8.5-10.1)
[2023-07-12 06:12] LABS: BUN/Creatinine Ratio 28.1 (10.0-20.0); Blood Urea Nitrogen 16 mg/dL (9-23); Glucose 92 mg/dL (74-106)
[2023-07-12 07:06] LABS: Basophils # (auto) 0.1 10 ^3/uL (0-0.2); Basophils % (auto) 0.5 % (0.0-2.0); Hematocrit 27.3 % (36.0-46.0); Lymphocytes % (auto) 38.6 % (10.0-50.0); Mean Corpuscular Hgb Conc. 32.2 g/dL (32.0-36.0); Mean Corpuscular Volume 102.4 fL (80.0-100.0); Monocytes % (auto) 7.7 % (0.0-12.0); Neutrophils % (auto) 52.5 % (37.0-80.0); Nucleated Red Blood Cells % 0.3 %; Red Blood Cells 2.66 10^6/uL (4.0-5.20); Red Cell Distribution Width 17.6 % (11.8-14.3); White Blood Cell 13.1 10^3/uL (4.4-10.8)
[2023-07-12] MEDS: Ensure HIGH Protein Chocolate 8oz Bottle PO SCH ×3 (09:33→18:00)
[2023-07-12] MEDS: CYANOCOBALAMIN 500 MCG TAB PO SCH (09:33)
[2023-07-12] MEDS: SODIUM CHLORIDE 0.9% 1,000 ML IV SCH (09:33)
[2023-07-12] MEDS: ACETAMINOPHEN 325 MG TAB PO PRN (20:23)
[2023-07-12] MEDS: ATORVASTATIN 20 MG TAB PO SCH (21:07)
[2023-07-12] MEDS: cefTRIAXone 1GM/50ML D5W 50 ML IV SCH (21:08)
[2023-07-13] VITALS (7 sets, daily range): BP systolic 104–125; BP diastolic 57–65; PULSE 79–91; RESP 17–20; TEMP 97.4–98.4; O2SAT 96–98
[2023-07-13] MEDS ORDERED: ALBUTEROL MEDNEB 2.5 mg/3ml NEB ONE (06:22)
[2023-07-13] MEDS: Ensure HIGH Protein Chocolate 8oz Bottle PO SCH ×3 (08:58→18:00)
[2023-07-13] MEDS: CYANOCOBALAMIN 500 MCG TAB PO SCH (10:14)
[2023-07-13] MEDS ORDERED: CEPH500C PO (11:54)
[2023-07-13] MEDS: ACETAMINOPHEN 325 MG TAB PO PRN ×2 (12:02→21:27)
[2023-07-13 13:45] LABS: % Iron Saturation 20.6 % (15-50)
[2023-07-13] MEDS: cefTRIAXone 1GM/50ML D5W 50 ML IV SCH (21:26)
[2023-07-13] MEDS: ATORVASTATIN 20 MG TAB PO SCH (21:26)
[2023-07-14] VITALS (7 sets, daily range): BP systolic 12–133; BP diastolic 65–73; PULSE 70–87; RESP 17–20; TEMP 97.8–98.3; O2SAT 95–98
[2023-07-14] MEDS: Ensure HIGH Protein Chocolate 8oz Bottle PO SCH ×2 (08:00→12:01)
[2023-07-14] MEDS: CYANOCOBALAMIN 500 MCG TAB PO SCH (08:47)
== END 2023-07-14 17:39 | DRG 871 ==
LOC: ER 16:20 → OVERFLOW 07-11 00:03 → CENTRAL 07-11 12:46
PROVIDERS: ADMIT Nurse Practitioner; ATTEND Nurse Practitioner
DX: A41.9 Sepsis, unspecified organism (principal); N17.0 Acute kidney failure with tubular necrosis; N13.6 Pyonephrosis; I50.42 Chronic combined systolic (congestive) and diastolic (congestive) heart failure; G62.9 Polyneuropathy, unspecified; D64.9 Anemia, unspecified; J44.9 Chronic obstructive pulmonary disease, unspecified; I11.0 Hypertensive heart disease with heart failure; I48.91 Unspecified atrial fibrillation; F41.9 Anxiety disorder, unspecified; Z98.51 Tubal ligation status; E78.5 Hyperlipidemia, unspecified; L89.91 Pressure ulcer of unspecified site, stage 1; Z74.01 Bed confinement status; Z86.711 Personal history of pulmonary embolism; Z88.1 Allergy status to other antibiotic agents; Z88.0 Allergy status to penicillin; Z88.8 Allergy status to other drugs, medicaments and biological substances
CPT/HCPCS: 36415; 70450; 71250; 72125; 74176; 80048; 80053; 81001; 82607; 83540; 83550; 83605; 83880; 85025; 87040; 87081; 87086; 87088; 87186; 93306; 96365; 96366; 97110; 97163; G0378; J0696